=== PATIENT | male | born 2005 | race Caucasian/White ===

== ENCOUNTER 2023-09-27 19:44 | Emergency (ER) | payer BC ==
[~2023-09-27] VITALS: Ht 185.4 cm; Wt 81.8 kg
[2023-09-27 19:49] VITALS: BP 112/78
[2023-09-27 21:00] VITALS: PULSE 79; TEMP 98.5
== END 2023-09-27 21:03 | disposition home or self-care (01) ==
LOC: COL.ER 19:44
DX: S63.267A Dislocation of metacarpophalangeal joint of left little finger, initial encounter (principal); W50.0XXA Accidental hit or strike by another person, initial encounter; Y93.67 Activity, basketball